=== PATIENT | female | born 1965 | race Caucasian/White ===

== ENCOUNTER → 2016-09-16 | Outpatient (CLI) | payer OTHER ==
[2010-08-20 19:04] VITALS: BP 110/80
--- NOTE | 2016-09-16 16:38 | DI ---
LUMBAR SPINE SERIES, 09/16/2016 3:19 PM: Clinical History: Lumbar pain with right radiculopathy. Previous Exam: None at this facility. 5 routine upright views are submitted. The vertebral bodies are of normal height and size. There is m oderately severe disc space narrowing at L2-3, L4-5, and L5-S1. The pedicles and posterior elements a re unremarkable except for degenerative arthritic changes in the L4-5 and L5-S1 apophyseal joints shahriar aterally. Both sacroiliac joints show mild degenerative arthritic change. Readin. Chronic disc space narrowing is present at L2-3, L4-5, and L5-S1. 2. Degenerative arthritic changes are present in both sacroiliac joints and the L4-5 and L5-S1 apoph yseal joints bilaterally.
== END ==
LOC: RAD 15:21
DX: M54.17 Radiculopathy, lumbosacral region (principal); M48.07 Spinal stenosis, lumbosacral region; M47.817 Spondylosis without myelopathy or radiculopathy, lumbosacral region
CPT/HCPCS: 72110

== ENCOUNTER → 2016-12-08 | Outpatient (CLI) | payer OTHER ==
[2010-08-20 19:04] VITALS: BP 110/80
--- NOTE | 2016-12-08 09:25 | DI ---
History: Low back pain. Right lower extremity pain. Comparison: None Findings: No abnormal marrow signal. Conus medullaris normal in position at the level of L1-2. Cauda equina normal in appearance T12-L1: No stenosis or foraminal narrowing L1-2: No stenosis or foraminal narrowing L2-3: No stenosis or foraminal narrowing L3-4: No stenosis or foraminal narrowing. Mild degenerative changes in facet joints. L4-5: Broad-based central disc bulge impressing slightly upon the thecal sac. There are mild degenera tive changes in the facet joints with subsequent mild narrowing of the left neural foramen. There is mild ligamentous hypertrophy. The combination of posterior disc bulge, degenerative changes in facet joints, and ligamentous hypertrophy results in mild focal spinal stenosis at this level. L5-S1: There is a 1.3 x 0.7 x 1.0 cm right posterior paracentral disc herniation. There is no sequest ered fragment. The herniated disc compresses upon the thecal sac resulting in moderate focal spinal s tenosis. The disc encroaches into the right neural foramen with subsequent mild foraminal narrowing.. The L5 nerve root appears to exit unimpinged, but this herniated disc could be impression on the rig ht S1 to the prior to its foraminal exit. Note is also made of mild to moderate degenerative changes in the facet joints at this level Impression: At the level of L5-S1 there is a right posterior disc herniation with subsequent mild narrowing of th e right neural foramen, and moderate focal spinal stenosis. There is no sequestered fragment. There a re also [id number] degenerative changes in facet joints at this level At the level of L4-5 there is a mild broad-based disc bulge impressing slightly upon the thecal sac. There are also mild degenerative changes in the facet joints. There is subsequent mild narrowing of l eft neural foramen, and mild focal spinal stenosis.
== END ==
LOC: MRI 06:38
PROVIDERS: ATTEND Chiropractor
DX: M54.5 Low back pain (principal); M51.17 Intervertebral disc disorders with radiculopathy, lumbosacral region; M47.26 Other spondylosis with radiculopathy, lumbar region
CPT/HCPCS: 72148

== ENCOUNTER 2016-12-09 02:21 | Emergency (ER) | payer OTHER ==
[2016-12-09] MEDS ORDERED: Sodium Chloride 0.9% 1,000 ML PRIMARY IV ONE (02:33)
[2016-12-09] MEDS ORDERED: ONDANSETRON 4 MG/2 ML VIAL IVP ONE (02:33)
[2016-12-09] MEDS ORDERED: NORMAL SALINE 10 ML SYRINGE FLUSH IVP PRN (02:33)
[2016-12-09] MEDS ORDERED: MORPHINE SULFATE 2 MG/1 ML IVP ONE (02:33)
[2016-12-09 02:42] VITALS: RESP 18; TEMP 96.8
--- NOTE | 2016-12-09 02:46 | EKG ---
[address] [address] Measurements Intervals [place] Rate: 74 P: 56 NH: 160 QRS: 32 QRSD: 82 T: 33 QT: 370 QTc: 398 Interpretive Statements SINUS RHYTHM No previous ECG available for comparison Electronically Signed On 12-09-16 12:30:52 MDT by Kang Newberry [email or web address]
--- NOTE | 2016-12-09 03:13 | PDOC ---
Back Pain / Injury HPI - General Chief Complaint: Neck / Back Complaint Stated Complaint: BACK PAIN Date Seen by Provider: 12/09/16 Time Seen by Provider: 02:30 Source: Patient Exam Limitations: POSITIVE: No limitations Nurse's Notes Reviewed & Considered: Yes - History of Present Illness Initial Comments: The patient is a 51-year-old female who presents to the emergency department with mid back pain that radiates around to the left lower chest. The patient reports that she has been having ongoing issues with pain in her lower back with radiation into her right leg. She has been seeing the chiropractor and had an MRI of her lower back yesterday. She states that she has been taking a lot of ibuprofen and Aleve. For the past couple of days she has had pain more in her mid back which radiates around her left lower chest. This pain has become quite intense tonight. She has associated nausea however has not had any emesis. She denies any shortness of breath, palpitation, abdominal pain, fever or any other associated symptoms. - Patient Home Medications Home Medications: Home Medications Ibuprofen 1 tab PO Q8H PRN #90 tab 06/25/15 Estrogens, Conjugated Tab [Premarin Tab] 1 tab ORAL QD #90 tab 10/23/15 Cyclobenzaprine HCl 10 mg PO TID #20 tab 09/02/16 oxyCODONE/APAP 5/325 Tab [Percocet 5/325 Tab] 1 tab PO Q6H PRN #20 tab - Patient Allergies Allergies/Adverse Reactions: Allergies Allergy/AdvReac Type Severity Reaction Status Date / Time Penicillins Allergy Intermediate hives Verified 12/09/16 02:27 Past Medical History - heen HEENT History: Denies History Cardiovascular History: Denies History Respiratory History: Denies History Gastrointestinal History: Denies History Genitourinary History: Denies History Endocrine History: Denies History Musculoskeletal History: Other (please comment) Prosthesis or Implant: No Additional Musculoskeletal History: siatica Neurological History: Denies History Blood Disorders: Denies History Psychiatric History: Denies History Female Reproductive History: Denies History Obstetrical History: Denies History Cancer History: Denies History In Past Year Been Physically Harmed or Verbally Threatened: No History of MDRO: No Tobacco Use: Light Tobacco Smoker Alcohol Use: Occasionally Type of alcohol normally used: Beer Substance Use Type: None Previous Surgical History: Yes Type / Date of Surgery: hysterectomy. appendectomy. hernia repair. bladder sling Significant Family History: No pertinent family hx Past Medical History Reviewed: Reviewed - No Changes ROS - Limitations ROS Limitations: No Limitations Constitution: DENIES: Chills, Fever Cardiovascular: DENIES: Chest Pain, Heart Palpitations, Edema Respiratory: DENIES: Hurts To Breathe, Shortness Of Breath Neurological: DENIES: Headache, Numbness, Weakness Gastrointestinal: REPORTS: Nausea. DENIES: Abdominal Pain, Vomitting Musculoskeletal: REPORTS: Back Pain Genitourinary: REPORTS: Denies Symptoms. DENIES: Hematuria, Difficulty Urinating Eyes: REPORTS: Denies Symptoms ENT: REPORTS: Denies Symptoms Skin: DENIES: Rash Back Physical Assessment - General Appearance General Appearance: REPORTS: Alert, Cooperative, No Acute Distress - HEENT HEENT: POSITIVE: Head Inspection Nml, Eyes Inspection Nml, Ears Inspection Nml, Pharynx Inspect. Nml - Neck Neck: POSITIVE: Non Tender, Painless ROM, Trachea Midline - Respiratory / CVS Respiratory / CVS: POSITIVE: Breath Sounds Normal, No Respiratory Distress, Heart Sounds Normal, Regular Rate/Rhythm, Other (She does have some tenderness to the left lower lateral chest wall) - Abdomen Abdomen: Soft: (All Quadrants), Denies Tenderness: (All Quadrants), No Distention: (All Quadrants) - Back Back: REPORTS: No Vertebral Tenderness - Skin Skin: REPORTS: Intact, No Rash - Extremities Extremity Assessment: Normal ROM: (ALL), Normal Inspection: (ALL) - Neurological / Psychological Neuro / Psych: 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 Lab Results Reviewed: Yes Lab Results:: Laboratory Results 12/09/16 12/09/16 Range/Units 03:00 04:03 WBC 6.35 (4.8-10.8) 10^3/uL RBC 4.12 L (4.20-5.40) 10^6/uL Hgb 14.2 (12.0-16.0) g/dL Hct 37.6 (37.0-47.0) % MCV 91.3 (81-99) FL MCH 34.5 H (27-31) PG MCHC 37.8 H (33-37) g/dL RDW Std Deviation 39.8 (39-50) fL RDW Coeff of Swapnil 12.2 (11.5-14.5) % Plt Count 235 (140-350) 10*3/uL MPV 12.0 (7.4-12.2) FL Immature Gran % (Auto) 0.3 (0-5) % Neut % (Auto) 49.7 L (50-80) % Lymph % (Auto) 34.2 (10-50) % [place] % (Auto) 10.1 (5-15) % Eos % (Auto) 3.3 (0-8) % Baso % (Auto) 2.4 H (0-1) % Immature Gran # (Auto) 0.02 10*3/UL Neut # (Auto) 3.16 10*3/UL Lymph # (Auto) 2.17 10*3/uL [place] # (Auto) 0.64 (0.3-0.8) 10*3/UL Eos # (Auto) 0.21 10*3/UL Baso # (Auto) 0.15 10*3/UL WBC Morphology Comment Normal morphology (NORM) Plt Morphology Comment Normal morphology (NORM) RBC Morph Comment Normal morphology (NORM) D-Dimer < 0.19 (0.00-0.59) mg/L Sodium 141 (135-145) meq/L Potassium 3.7 L (3.8-5.2) meq/L Chloride 107 (98-112) meq/L Carbon Dioxide 24 (23-33) meq/L Anion Gap 10 (5-20) BUN 15 (7-22) mg/dL Creatinine 0.8 (0.50-1.20) mg/dL Estimated GFR > 60 (>60 ml/min/1.73m(2)) BUN/Creatinine Ratio 18.75 (6-20) Glucose 94 (78-110) mg/dL Calculated Osmolality 292.0 (267-292) mOsm/kg Calcium 9.2 (8.7-10.7) mg/dL Total Bilirubin 0.4 (0.3-1.2) mg/dL AST 37 (8-39) IU/L ALT 34 (9-52) IU/L Alkaline Phosphatase 69 (38-126) IU/L Troponin I < 0.012 (< 0.040) ng/mL C-Reactive Protein 1.0 H (0.0-0.9) mg/dL Total Protein 7.3 (6.1-8.0) g/dL Albumin 4.1 (3.5-4.8) g/dL Globulin 3.2 (2.50-4.10) g/dL Albumin/Globulin Ratio 1.20 L (1.3-2.0) mg/g Amylase 71 (30-110) U/L Lipase 118 (23-300) IU/L Ur Collection Type Clean catch urine Urine Color Yellow Urine Clarity Clear (CLEAR) Urine pH 5.0 (5.0-8.5) Ur Specific [place] 1.020 (1.005-1.030) Urine Protein Negative (NEG) mg/dl Urine Glucose (UA) Negative (NEG) mg/dL Urine Ketones Negative (NEG) Urine Occult Blood Negative (NEG) Urine Nitrate Negative (NEG) Urine Bilirubin Negative (NEG) Urine Urobilinogen 0.2 (0.2) EU/dL Ur Leukocyte Esterase Negative (NEG) Ur Culture Indicated? Culture not set EKG Interpretation:: POSITIVE: Normal Sinus Rhythm, Normal Rate, Normal QRS, Normal ST/T - Patient's Progress MDM / ED Course: The patient was having significant pain on arrival. IV was established and the patient received morphine 2 mg IV and Zofran 4 mg IV for pain. Her EKG shows normal sinus rhythm with no acute ST segment or T-wave changes. Her pain was only slightly improved with administration of morphine. Her blood work, urinalysis, CT scan of her chest abdomen pelvis are all essentially unremarkable. She did have a small pulmonary density for which the radiologist recommended follow-up and this was discussed with the patient. The etiology of her pain is unclear. It is possible this could be musculoskeletal. The other possibility is that this pain might represent some gastritis or ulcer secondary to the patient's extensive NSAID use recently. She was given a dose of Protonix 40 mg IV as well as Toradol 15 mg IV. She was advised to limit her Aleve use to 2 tablets twice a day with food. She was also advised to continue omeprazole 20 mg daily for 2 weeks. The MRI done of her lumbar spine does reveal evidence of a herniated disc with nerve impingement. I did recommend that she follow up with a back specialist. She has seen a chiropractor who is the person who ordered the MRI. She is advised to follow-up with primary care. She will return to the emergency room if she develops increased pain, worsening or change in symptoms. - Consult Counseled: POSITIVE: Patient, RE: Lab Results, RE: Radiology Results, RE: DX, RE : Need for F/U Patient Care Time - Estimated PCT Patient Care Time (In Minutes): 35 Vital Signs - Recent Vital Signs Vital Signs: Vital Signs (Last 8 hours) Temp Pulse Resp BP Pulse Ox 12/09/16 02:37 96.8 F 86 18 148/77 100 - VS Reviewed Vital Signs Reviewed: Yes Discharge Clinical Impression: Back pain, Herniated disc Discharge Disposition: Discharged to Home Condition: Stable Prescriptions / Orders: oxyCODONE/APAP 5/325 Tab [Percocet 5/325 Tab] 1 tab PO Q6H PRN #20 tab PRN Reason: Pain Patient Instructions Given at Discharge: Back Pain (ED) Additional Instructions: The blood work done here in the emergency department was all normal. The urinalysis was also normal. The CAT scan did not reveal any obvious cause for your current mid back and left lower chest wall pain. The CAT scan did show a small spot on the right upper lung which most likely represents a scar tissue however the radiologist recommended follow-up evaluation in 6 months. It is possible that some of your current mid back pain could be related to stomach irritation from recent ibuprofen and Aleve use. Recommend not taking more than 2 Aleve twice a day with food. In addition take omeprazole ([id number] Prilosec) 20 mg daily which is in an acid. You have been prescribed Percocet 5/ 325 which he can take one every 4-6 hours as needed for pain. The MRI of your lower back does show a herniated disc in her lower back which is pinching on the nerve on the right side. This is the likely cause of your sciatic pain. Would recommend follow-up with a back specialist. Return to the emergency room if increased pain, worsening or change in symptoms. Follow Up With: MARY RAPHAEL [Primary Care Provider] -
[2016-12-09 03:22] LABS: BASOPHILS # (AUTO) 0.15 10*3/UL; BASOPHILS % (AUTO) 2.4 % (0-1); EOSINOPHILS # (AUTO) 0.21 10*3/UL; EOSINOPHILS % (AUTO) 3.3 % (0-8); HEMATOCRIT 37.6 % (37.0-47.0); HEMOGLOBIN 14.2 g/dL (12.0-16.0); LYMPHOCYTES # (AUTO) 2.17 10*3/uL; MEAN CORPUSCULAR HEMOGLOBIN 34.5 PG (27-31); MEAN CORPUSCULAR HGB CONC 37.8 g/dL (33-37); MEAN CORPUSCULAR VOLUME 91.3 FL (81-99); MONOCYTES # (AUTO) 0.64 10*3/UL (0.3-0.8); MONOCYTES % (AUTO) 10.1 % (5-15); NEUTROPHILS # (AUTO) 3.16 10*3/UL; NEUTROPHILS % (AUTO) 49.7 % (50-80); RED BLOOD COUNT 4.12 10^6/uL (4.20-5.40)
[2016-12-09 03:28] LABS: PLATELET MORPHOLOGY COMMENT NORMAL MORPHOLOGY (NORM); RBC MORPHOLOGY COMMENT NORMAL MORPHOLOGY (NORM); WBC MORPHOLOGY COMMENT NORMAL MORPHOLOGY (NORM)
[2016-12-09 03:33] LABS: LIPASE 118 IU/L (23-300)
[2016-12-09 03:40] LABS: BLOOD UREA NITROGEN 15 mg/dL (7-22); BUN/CREATININE RATIO 18.75 (6-20); CALCIUM 9.2 mg/dL (8.7-10.7); EST GLOMERULAR FILTRATION > 60 (>60 ml/min/1.73m(2)); SERUM ALBUMIN 4.1 g/dL (3.5-4.8)
[2016-12-09 04:10] LABS: BILIRUBIN,URINE NEGATIVE (NEG); CLARITY,URINE CLEAR (CLEAR); COLOR,URINE YELLOW; GLUCOSE, URINE (UA) NEGATIVE (NEG); NITRATE,URINE NEGATIVE (NEG); OCCULT BLOOD,URINE NEGATIVE (NEG); PROTEIN,URINE NEGATIVE (NEG); UROBILINOGEN,URINE 0.2 EU/dL (0.2)
[2016-12-09 04:11] LABS: URINE SAMPLE TYPE CLEAN CATCH URINE
--- NOTE | 2016-12-09 05:01 | DI ---
HISTORY: Mid back pain. Left-sided chest pain. COMPARISON: None available. TECHNIQUE: Enhanced images of the chest, abdomen and pelvis were obtained and submitted for interpre tation. FINDINGS: No main or segmental pulmonary emboli. No pneumothorax, pleural effusion, or area of cons olidation. There is atelectasis and scarring in the medial right middle lobe and lingula. There is a 4 mm pulmonary nodule in the right upper lobe. There are calcified right lung granulomata. Airway s are patent with no endobronchial lesion. No evidence of great vessel injury, dissection, or aneurysm. Heart size is normal with no pericardia l effusion. No mediastinal or hilar lymphadenopathy. There are calcified mediastinal and right thomas r lymph nodes. The thyroid exhibits normal CT morphology. Normal CT appearance of the liver, pancreas, spleen, kidneys, and adrenal glands. The patient is sta tus post cholecystectomy. The urinary bladder is incompletely distended and not optimally evaluated. Ureters are unremarkable. Hollow viscus organs demonstrate normal course and caliber. There is no intraperitoneal free air or fluid. Vascular structures are intact. No abdominopelvic lymphadenopathy is present. The uterus is absent and the adnexa are unremarkable, though better evaluated with pelvic ultrasound. There is multilevel degenerative disc disease. IMPRESSION: 1. No CT evidence of acute cardiopulmonary process. 2. There is atelectasis and scarring in the medial right middle lobe and lingula, a finding associate d with chronic mycobacterial infection. 3. There is a 4 mm pulmonary nodule in the right upper lobe. Follow-up is recommended according to t he Fleischner criteria. 4. There is no CT evidence of acute intra-abdominal or pelvic pathology.
[2016-12-09] MEDS ORDERED: Pantoprazole Inj 40 MG in Normal Saline Flush 10 ML IVP ONE (05:15)
[2016-12-09] MEDS ORDERED: KETOROLAC 15 MG/1 ML VIAL IVP ONE (05:15)
[2016-12-09] MEDS ORDERED: oxyCODONE-ACETAMINOPHEN 5-325 TAB PO SCH (05:30)
== END 2016-12-09 05:42 | disposition home or self-care (01) ==
LOC: ER 02:21
DX: M51.26 Other intervertebral disc displacement, lumbar region (principal); R07.9 Chest pain, unspecified; M54.5 Low back pain; R11.0 Nausea
CPT/HCPCS: 71260; 74177; 80053; 81003; 82150; 83690; 84484; 85025; 85379; 86140; 93005; 93010; 96374; 96375; 99283 ×2; J1885; J2270; J2405; J3490

== ENCOUNTER 2016-12-10 03:20 | Emergency (ER) | payer OTHER ==
[2016-12-10] MEDS ORDERED: NORMAL SALINE 10 ML SYRINGE FLUSH IVP PRN (03:48)
[2016-12-10] MEDS: Sodium Chloride 0.9% 1,000 ML PRIMARY IV ONE (03:50)
[2016-12-10 04:00] VITALS: TEMP 97.3
[2016-12-10] MEDS: ONDANSETRON 4 MG/2 ML VIAL IVP ONE (04:02)
[2016-12-10] MEDS: diphenhydrAMINE 50 MG/1 ML VIAL IV ONE (04:05)
[2016-12-10 04:07] LABS: BASOPHILS # (AUTO) 0.07 10*3/UL; BASOPHILS % (AUTO) 1.2 % (0-1); EOSINOPHILS # (AUTO) 0.03 10*3/UL; EOSINOPHILS % (AUTO) 0.5 % (0-8); HEMATOCRIT 35.2 % (37.0-47.0); HEMOGLOBIN 12.6 g/dL (12.0-16.0); LYMPHOCYTES # (AUTO) 1.18 10*3/uL; MEAN CORPUSCULAR HEMOGLOBIN 31.8 PG (27-31); MEAN CORPUSCULAR HGB CONC 35.8 g/dL (33-37); MEAN CORPUSCULAR VOLUME 88.9 FL (81-99); MEAN PLATELET VOLUME 11.3 FL (7.4-12.2); MONOCYTES # (AUTO) 0.62 10*3/UL (0.3-0.8); MONOCYTES % (AUTO) 10.4 % (5-15); NEUTROPHILS # (AUTO) 4.08 10*3/UL; PLATELET MORPHOLOGY COMMENT NORMAL MORPHOLOGY (NORM); RBC MORPHOLOGY COMMENT NORMAL MORPHOLOGY (NORM); RED BLOOD COUNT 3.96 10^6/uL (4.20-5.40); WBC MORPHOLOGY COMMENT NORMAL MORPHOLOGY (NORM)
[2016-12-10] MEDS: KETOROLAC 30 MG/1 ML VIAL IVP ONE (04:16)
[2016-12-10 04:17] LABS: BLOOD UREA NITROGEN 6 mg/dL (7-22); EST GLOMERULAR FILTRATION > 60 (>60 ml/min/1.73m(2)); SERUM ALBUMIN 3.8 g/dL (3.5-4.8)
[2016-12-10] MEDS: valACYclovir Tab 500 MG TAB PO ONE (05:05)
[2016-12-10 05:06] VITALS: RESP 16
--- NOTE | 2016-12-10 05:46 | PDOC ---
General Adult HPI - General Chief Complaint: Neck / Back Complaint Stated Complaint: BACK PAIN Date Seen by Provider: 12/10/16 Time Seen by Provider: 03:25 Source: POSITIVE: Patient, Spouse, Old records Exam Limitations: POSITIVE: No limitations Nurse's Notes Reviewed & Considered: Yes - History of Present Illness Initial Comment: The patient is a 51 year old female who presents to the emergency room complaining of a 2-3 day history of pain over the left hemithorax. Patient states the pain is located beneath the left breast and radiates around to the left posterior thorax. Patient describes the pain in the distribution roughly of the T5 dermatome. Patient was seen in the emergency room for this complaint yesterday. CT scan of the chest, pelvis and abdomen with IV contrast were normal except for a 4 mm density in the right upper lung. At that time complete metabolic panel was normal. D-dimer was negative. CBC was normal. Urinalysis was normal. Patient was prescribed Percocet on that visit for her pain. Patient states that she thinks that this medication is upsetting her stomach and she has had nausea and vomiting for the past day. No fevers or chills. No dyspnea or cough. Have you received a tetanus shot in the past 10 years?: Yes Body Location Affected: REPORTS: Chest Timing: REPORTS: Gradual, Getting Worse Duration: >24 hours (2-3 days) Severity: Severe Quality: REPORTS: "Pain" Context: REPORTS: None Modifying Factors: improves with: Vomiting (Nausea and vomiting since starting Percocet) Similar Symptoms Previously: Yes (as above) Recent Care Received: REPORTS: Recently Seen, Treated by MD Any Prior Injuries Related to Current Complaint?: No - Patient Home Medications Home Medications: Home Medications Ibuprofen 1 tab PO Q8H PRN #90 tab 06/25/15 Estrogens, Conjugated Tab [Premarin Tab] 1 tab ORAL QD #90 tab 10/23/15 Cyclobenzaprine HCl 10 mg PO TID #20 tab 09/02/16 oxyCODONE/APAP 5/325 Tab [Percocet 5/325 Tab] 1 tab PO Q6H PRN #20 tab Ketorolac Tromethamine [Toradol] 10 mg PO Q4H #20 tablet 12/10/16 Ondansetron Odt [Zofran ODT] 4 mg PO Q4H PRN #20 tab.rapdis 12/10/16 Valacyclovir HCl [Valtrex] 1,000 mg PO DAILY #20 tab 12/10/16 - Patient Allergies Allergies/Adverse Reactions: Allergies Allergy/AdvReac Type Severity Reaction Status Date / Time Penicillins Allergy Intermediate hives Verified 12/09/16 02:27 Past Medical History - heen HEENT History: Denies History Cardiovascular History: Denies History Respiratory History: Denies History Gastrointestinal History: Denies History Genitourinary History: Denies History Endocrine History: Denies History Musculoskeletal History: Denies History, Other (please comment) Prosthesis or Implant: No Additional Musculoskeletal History: sciatica Neurological History: Denies History Blood Disorders: Denies History Psychiatric History: Denies History History of Sexually Transmitted Diseases: No Female Reproductive History: Hysterectomy LMP: 1998 Cancer History: Denies History In Past Year Been Physically Harmed or Verbally Threatened: No History of MDRO: No History of Other Communicable Diseases: No Tobacco Use: Smoker Current Status Unknown Alcohol Use: Occasionally Type of alcohol normally used: Beer How much alcohol do you normally drink a day?: 1-2 a week Substance Use Type: None Previous Surgical History: Yes Type / Date of Surgery: hysterectomy. appendectomy. hernia repair. bladder sling Anesthesia Reactions: No Significant Family History: No pertinent family hx Past Medical History Reviewed: Reviewed - No Changes ROS - Limitations ROS Limitations: No Limitations Constitution: REPORTS: Denies Symptoms Cardiovascular: REPORTS: Denies Cardiac Symptoms Respiratory: REPORTS: Denies Resp Symptoms Neurological: REPORTS: Denies Neuro Symptoms Gastrointestinal: REPORTS: Nausea, Vomitting Endocrine: REPORTS: Denies Symptoms Musculoskeletal: REPORTS: Back Pain Genitourinary: REPORTS: Denies Symptoms Eyes: REPORTS: Denies Symptoms ENT: REPORTS: Denies Symptoms Skin: REPORTS: Other (Patient has not noted any rashes or skin lesions; however on physical examination the patient is starting to develop a rash in the left T5 dermatome) Lympathic: REPORTS: Denies Lympathic Symptoms Immunologic: POSITIVE: Denies Symptoms Psychiatric: POSITIVE: Denies Psych Symptoms General Adult Exam - General Appearance General Appearance: POSITIVE: Alert, Cooperative, No Evidence of Trauma. NEGATIVE: Moderate Distress (Due to pain left hemithorax and nausea) - HEENT HEENT: POSITIVE: Head Inspection Nml, Eyes Inspection Nml, Ears Inspection Nml, Nose Inspection Nml, Oral/Dental Inspect. Nml, Pharynx Inspect. Nml, PERRL, EOMI - Pupils Pupil Size: 3 mm: Bilateral (pupils equal round and reactive to light) - Neck Neck: POSITIVE: Normal Inspection, Thyroid Normal - Respiratory Respiratory: POSITIVE: No Respiratory Distress, Breath Sounds Normal, Chest Non- Tender - Cardiovascular Cardiovascular: POSITIVE: Regular Rate & Rhythm, No Murmur, No Gallop, PMI Normal Peripheral Pulses: Radial (R): 2+, Radial (L): 2+ - Abdomen Abdomen: Soft: (All Quadrants), Normal Bowel Sounds: (All Quadrants), Denies Tenderness: (All Quadrants), No Splenomegaly: (All Quadrants), No Hepatomegaly: (All Quadrants), No Guarding: (All Quadrants), No Rebound: (All Quadrants), No Palpable Pulse: (All Quadrants), No Palpabale Mass: (All Quadrants), No Distention: (All Quadrants), No Rigidity: (All Quadrants) - Back Back: POSITIVE: Normal Inspection - Skin Skin: POSITIVE: Zoster-Like Rash (Patient is beginning to develop a papular rash over the distribution of the T5 dermatome on the left) - Extremities Extremity: Non-Tender: (All Extremities), Normal ROM: (All Extremities), Normal Inspection: (All Extremities) - Neurological / Psychological Neurological: 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 Skin is very sensitive in this area to even light touch. There is a faint rash over this area, papular 2 - Area of described pain; skin is tender over this area to even light touch. There is beginning to develop a faint papular rash, suspicious for herpes zoster. General Adult Progress - Results Reviewed by me Xrays/CTs/US Reviewed by me: Yes Radiology Findings: CT scan reports done yesterday reviewed Lab Results Reviewed: Yes (laboratory values done yesterday reviewed) Lab Results:: Laboratory Results 12/10/16 Range/Units 04:05 WBC 5.99 (4.8-10.8) 10^3/uL RBC 3.96 L (4.20-5.40) 10^6/uL Hgb 12.6 (12.0-16.0) g/dL Hct 35.2 L (37.0-47.0) % MCV 88.9 (81-99) FL MCH 31.8 H (27-31) PG MCHC 35.8 (33-37) g/dL RDW Std Deviation 38.2 L (39-50) fL RDW Coeff of Swapnil 11.9 (11.5-14.5) % Plt Count 229 (140-350) 10*3/uL MPV 11.3 (7.4-12.2) FL Immature Gran % (Auto) 0.2 (0-5) % Neut % (Auto) 68.0 (50-80) % Lymph % (Auto) 19.7 (10-50) % [place] % (Auto) 10.4 (5-15) % Eos % (Auto) 0.5 (0-8) % Baso % (Auto) 1.2 H (0-1) % Immature Gran # (Auto) 0.01 10*3/UL Neut # (Auto) 4.08 10*3/UL Lymph # (Auto) 1.18 10*3/uL [place] # (Auto) 0.62 (0.3-0.8) 10*3/UL Eos # (Auto) 0.03 10*3/UL Baso # (Auto) 0.07 10*3/UL WBC Morphology Comment Normal morphology (NORM) Plt Morphology Comment Normal morphology (NORM) RBC Morph Comment Normal morphology (NORM) Sodium 137 (135-145) meq/L Potassium 3.3 L (3.8-5.2) meq/L Chloride 111 (98-112) meq/L Carbon Dioxide 18 L (23-33) meq/L Anion Gap 8 (5-20) BUN 6 L (7-22) mg/dL Creatinine 0.6 (0.50-1.20) mg/dL Estimated GFR > 60 (>60 ml/min/1.73m(2)) BUN/Creatinine Ratio 10.00 (6-20) Glucose 102 (78-110) mg/dL Calculated Osmolality 281.0 (267-292) mOsm/kg Calcium 9.0 (8.7-10.7) mg/dL Total Bilirubin 0.4 (0.3-1.2) mg/dL AST 27 (8-39) IU/L ALT 39 (9-52) IU/L Alkaline Phosphatase 56 (38-126) IU/L Total Protein 6.6 (6.1-8.0) g/dL Albumin 3.8 (3.5-4.8) g/dL Globulin 2.8 (2.50-4.10) g/dL Albumin/Globulin Ratio 1.30 (1.3-2.0) mg/g - Patient's Progress Pain Medication Addressed: POSITIVE: Yes (Patient given Toradol IV and then prescribed Toradol as an outpatient, since the Percocet is apparently upsetting her stomach) School/Work Release Addressed: POSITIVE: Yes Re-Examine Time: 05:15 Re-Examine Comment: Patient hydrated with a liter normal saline and was given 4 mg Zofran IV and 30 mg of ketorolac IV. Nausea and vomiting have resolved. Status: POSITIVE: Improved, Re-Examined Antibiotics Given: Yes (Valtrex, 1 g every 8 hours for 7 days) - Consult Counseled: POSITIVE: Patient, Family (), RE: DX, RE: Need for F/U Patient Care Time - Estimated PCT Patient Care Time (In Minutes): 50 Vital Signs - Recent Vital Signs Vital Signs: Vital Signs (Last 8 hours) Temp Pulse Pulse Resp BP BP Pulse Ox 12/10/16 05:19 78 16 132/75 96 12/10/16 05:04 75 16 132/78 97 12/10/16 04:51 80 18 12/10/16 03:48 86 16 147/81 94 12/10/16 03:20 97.3 F 86 18 138/77 98 - VS Reviewed Vital Signs Reviewed: Yes Discharge Clinical Impression: Shingles Discharge Disposition: Discharged to Home Condition: Stable Prescriptions / Orders: Ketorolac Tromethamine [Toradol] 10 mg PO Q4H #20 tablet Valacyclovir HCl [Valtrex] 1,000 mg PO DAILY #20 tab Ondansetron Odt [Zofran ODT] 4 mg PO Q4H PRN #20 tab.rapdis PRN Reason: Nausea Patient Instructions Given at Discharge: Shingles (ED) Additional Instructions: I believe you probably have shingles. Your chest beginning to develop a rash in the distribution of the pain on the left side of your thorax, which is typical for shingles. Please take Valtrex, one every 8 hours (1 tablet 3 times daily) for 7 days. Her nausea is likely due to the Percocet which you were prescribed yesterday. Therefore I have substituted a nonnarcotic pain medicine called ketorolac. Take 2 tablets in approximately 4 hours, and then 1 tablet every 4 hours as necessary for pain, not to exceed 4 tablets in 24 hours. Zofran ODT, one dissolved on the tongue every 4 hours as necessary for nausea. Follow-up with your primary care provider. Return here anytime if condition worsens in any way whatsoever. Follow Up With: MARY RAPHAEL [Primary Care Provider] - (Instructions as above. Follow-up with your primary care provider. Return here anytime if condition worsens in any way.)
== END 2016-12-10 05:19 | disposition home or self-care (01) ==
LOC: ER 03:20
DX: M54.89 Other dorsalgia (principal); B02.9 Zoster without complications; R11.2 Nausea with vomiting, unspecified
CPT/HCPCS: 36415; 80053; 85025; 96361; 96374; 96375; 99283 ×2; J1200; J1885; J2405; J7030